=== PATIENT | female | born 1990 | race Caucasian/White ===

== ENCOUNTER → 2017-09-27 | Outpatient (CLI) | payer MEDICAID ==
[~2017-09-27] MED LIST: CEPH-368 PO; DOCU100T3 PO; IBUP-1222 PO; OXYC-302 PO; PNV1TABL4 PO
== END | disposition home or self-care (01) ==
LOC: RAD 13:35
PROVIDERS: ATTEND Nurse Practitioner Family
DX: S83.511A Sprain of anterior cruciate ligament of right knee, initial encounter (principal); M71.21 Synovial cyst of popliteal space [Baker], right knee; M25.461 Effusion, right knee; Z91.81 History of falling

== ENCOUNTER → 2018-01-24 | Outpatient (CLI) | payer MEDICAID ==
[~2018-01-24] MED LIST changes: +ESCI20TA PO; +METH750T2 PO
== END | disposition home or self-care (01) ==
LOC: STAR 13:38
PROVIDERS: ATTEND Orthopaedic Surgery
DX: Z02.9 Encounter for administrative examinations, unspecified (principal)

== ENCOUNTER 2018-01-31 12:28 | Day surgery (SDC) | payer MEDICAID ==
[2018-01-24 14:20] VITALS: BP 127/78
[~2018-01-31] VITALS: Ht 175.3 cm; Wt 90.0 kg
[~2018-01-31 12:28] MED LIST changes: +LIDOCAINE 1%-EPI 1:100K, 30ML ONE; +ROPIvacaine/PF 0.5%, 30 ML ONE
[2018-01-31] MEDS ORDERED: LACTATED RINGERS 1,000 ML IV SCH (12:51)
[2018-01-31 12:58] LABS: HCG UR SG 1.022 (1.003-1.030)
[2018-01-31] MEDS ORDERED: GABAPENTIN 300 MG CAPSULE PO ONE (13:00)
[2018-01-31] MEDS ORDERED: ACETAMINOPHEN 500 MG TABLET PO ONE (13:00)
[2018-01-31] MEDS ORDERED: OXYcodone IR 5MG TABLET PO ONE (13:00)
[2018-01-31] MEDS ORDERED: FENTANYL PF 250 MCG/5ML ONE (13:47)
[2018-01-31] MEDS ORDERED: MIDAZOLAM 1 MG/ML, 2ML ONE (13:47)
[2018-01-31] MEDS ORDERED: MEPERIDINE/PF 25MG/0.5ML IVPush PRN (14:00)
[2018-01-31] MEDS ORDERED: LABETALOL 5MG/ML, 20ML IV PRN (14:00)
[2018-01-31] MEDS ORDERED: hydrALAzine 20 MG/ML, 1ML IV PRN (14:00)
[2018-01-31] MEDS ORDERED: PROCHLORPERAZINE 5 MG/ML, 2ML IV PRN (14:00)
[2018-01-31] MEDS ORDERED: HALOPERIDOL 5 MG/ML IV PRN (14:00)
[2018-01-31] MEDS ORDERED: DIPHENHYDRAMINE 50 MG/ML, 1ML IVPush PRN (14:00)
[2018-01-31] MEDS ORDERED: OXYcodone 5 MG/5 ML ORAL.SOL UDC PO PRN (14:00)
[2018-01-31] MEDS ORDERED: ONDANSETRON 2MG/ML, 2ML ONE (14:24)
[2018-01-31] MEDS ORDERED: SUCCINYLCHOLINE 20 MG/ML, 10ML ONE (14:24)
[2018-01-31] MEDS ORDERED: DEXAMETHASONE 4 MG/ML, 1ML ONE (14:24)
[2018-01-31] MEDS ORDERED: CEFAZOLIN 1,000 MG ONE (14:24)
[2018-01-31] MEDS ORDERED: GLYCOPYRROLATE 0.2MG/1ML, 5ML ONE (14:24)
[2018-01-31] MEDS ORDERED: NEOSTIGMINE 1 MG/ML, 10ML ONE (14:24)
[2018-01-31] MEDS ORDERED: ROCURONIUM 10MG/ML,5ML ONE (14:24)
[2018-01-31] MEDS ORDERED: PROPOFOL 10 MG/ML, 20ML ONE (14:24)
[2018-01-31] MEDS ORDERED: OXYcodone 5 MG/5 ML ORAL.SOL UDC ONE (15:00)
[2018-01-31] MEDS ORDERED: FENTANYL PF 100 MCG/2ML ONE (15:00)
[2018-01-31] MEDS: FENTANYL PF 100 MCG/2ML IV PRN ×2 (15:04→15:12)
[2018-01-31] MEDS ORDERED: HYDROmorphone 2 MG/ML, 1ML ONE (15:21)
[2018-01-31] MEDS: HYDROmorphone 1 MG/ML, 1ML IV PRN ×3 (15:23→15:40)
[2018-01-31] MEDS ORDERED: KETOROLAC 30 MG/1 ML ONE (17:22)
[2018-01-31] MEDS ORDERED: KETOROLAC 30 MG/1 ML IVPush SCH (17:30)
== END 2018-01-31 18:26 | disposition home or self-care (01) ==
LOC: OUT 12:28
PROVIDERS: ATTEND Orthopaedic Surgery
DX: S83.211A Bucket-handle tear of medial meniscus, current injury, right knee, initial encounter (principal); S83.281A Other tear of lateral meniscus, current injury, right knee, initial encounter; S83.511A Sprain of anterior cruciate ligament of right knee, initial encounter; M65.861 Other synovitis and tenosynovitis, right lower leg; M94.261 Chondromalacia, right knee; X58.XXXA Exposure to other specified factors, initial encounter; Y93.89 Activity, other specified; Y92.89 Other specified places as the place of occurrence of the external cause; Y99.8 Other external cause status; Z88.1 Allergy status to other antibiotic agents; Z87.891 Personal history of nicotine dependence
CPT/HCPCS: 29880; 29888; 64447; 73560; 76000; 81025; C1713; J0330; J0690; J1100; J1170; J1885; J2250; J2405; J2704; J2710; J2795; J3010; J3490; J7120

== ENCOUNTER 2018-02-11 16:14 | Inpatient (IN) | payer MEDICAID ==
[~2018-02-11] VITALS: Ht 175.3 cm; Wt 98.4 kg
[~2018-02-11 16:14] MED LIST changes: -LIDOCAINE 1%-EPI 1:100K, 30ML ONE; -ROPIvacaine/PF 0.5%, 30 ML ONE
[2018-02-11] MEDS ORDERED: LACTATED RINGERS 1,000 ML IV SCH (16:50)
[2018-02-11 16:54] VITALS: BP 114/75
[2018-02-11 16:59] LABS: HCG UR SG 1.005 (1.003-1.030)
[2018-02-11] MEDS ORDERED: OXYcodone 5 MG/5 ML ORAL.SOL UDC PO PRN (17:00)
[2018-02-11] MEDS ORDERED: MEPERIDINE/PF 25MG/0.5ML IVPush PRN (17:00)
[2018-02-11] MEDS ORDERED: PROCHLORPERAZINE 5 MG/ML, 2ML IV PRN (17:00)
[2018-02-11] MEDS ORDERED: HALOPERIDOL 5 MG/ML IV PRN (17:00)
[2018-02-11] MEDS ORDERED: hydrALAzine 20 MG/ML, 1ML IV PRN (17:00)
[2018-02-11] MEDS ORDERED: LABETALOL 5MG/ML, 20ML IV PRN (17:00)
[2018-02-11] MEDS ORDERED: DIPHENHYDRAMINE 50 MG/ML, 1ML IVPush PRN (17:00)
[2018-02-11] MEDS ORDERED: FENTANYL PF 100 MCG/2ML ONE ×2 (17:15→18:10)
[2018-02-11] MEDS ORDERED: ONDANSETRON 2MG/ML, 2ML ONE (17:50)
[2018-02-11] MEDS ORDERED: CEFAZOLIN 1,000 MG ONE (17:50)
[2018-02-11] MEDS ORDERED: DEXAMETHASONE 4 MG/ML, 1ML ONE (17:50)
[2018-02-11] MEDS ORDERED: PROPOFOL 10 MG/ML, 20ML ONE (17:50)
[2018-02-11] MEDS ORDERED: HYDROmorphone 2 MG/ML, 1ML ONE (18:10)
[2018-02-11] MEDS: FENTANYL PF 100 MCG/2ML IV PRN ×2 (18:11→18:22)
[2018-02-11] MEDS: HYDROmorphone 1 MG/ML, 1ML IV PRN ×3 (18:17→18:54)
[2018-02-11 19:39] VITALS: BP 123/76
[2018-02-11] MEDS ORDERED: SENNA/DOCUSATE TABLET PO PRN (20:00)
[2018-02-11] MEDS ORDERED: ONDANSETRON 2MG/ML, 2ML IV PRN (20:00)
[2018-02-11] MEDS ORDERED: DIPHENHYDRAMINE 25 MG CAPSULE PO PRN (20:00)
[2018-02-11] MEDS ORDERED: CEFAZOLIN PMX 1GM/50ML 50 ML IVPB SCH (20:00)
[2018-02-11] MEDS ORDERED: MAGNESIUM HYDROXIDE 8%, 30ML UDC PO PRN (20:00)
[2018-02-11] MEDS ORDERED: BISACODYL 10 MG SUPP PR PRN (20:00)
[2018-02-11] MEDS ORDERED: ACETAMINOPHEN 325 MG TABLET PO PRN (20:00)
[2018-02-11] MEDS ORDERED: PROMETHAZINE 25 MG/ML, 1ML IM PRN (20:00)
[2018-02-11] MEDS ORDERED: VANCOMYCIN PER PHARMACY MC PRN (20:00)
[2018-02-11] MEDS ORDERED: ALUMINUM/MAG/SIMETHICONE 30 ML UDC PO PRN (20:00)
[2018-02-11] MEDS ORDERED: PHARMACOKINETIC MONITORING MC PRN (20:30)
[2018-02-11] MEDS: DOCUSATE 100 MG CAPSULE PO SCH (21:00)
[2018-02-11] MEDS: HYDROcodone/APAP 5/325 TABLET PO PRN (21:22)
[2018-02-11] MEDS: VANCOMYCIN 1,600 MG in SODIUM CHLORIDE 0.9% 250 ML IV SCH (21:23)
[2018-02-11] MEDS: KETOROLAC 30 MG/1 ML IV SCH (21:23)
[2018-02-12] MEDS: HYDROcodone/APAP 10/325 MG TABLET PO PRN ×5 (01:27→20:39)
[2018-02-12] MEDS: CEFAZOLIN PMX 2GM/50ML 50 ML IVPB SCH ×2 (01:27→10:34)
[2018-02-12] MEDS: D5%-LACTATED RINGERS 1,000 ML IV SCH ×2 (01:28→16:59)
[2018-02-12 03:30] VITALS: BP 106/62
[2018-02-12] MEDS: KETOROLAC 30 MG/1 ML IV SCH ×2 (04:21→11:41)
[2018-02-12 05:58] LABS: CREATININE 0.55 mg/dL (0.55-1.02)
[2018-02-12 07:04] VITALS: BP 109/67
[2018-02-12] MEDS: ASPIRIN 325 MG TABLET EC PO SCH ×2 (08:57→20:39)
[2018-02-12] MEDS: VANCOMYCIN 1,600 MG in SODIUM CHLORIDE 0.9% 250 ML IV SCH ×2 (08:58→22:00)
[2018-02-12] MEDS: DOCUSATE 100 MG CAPSULE PO SCH ×2 (08:58→20:41)
[2018-02-12 12:53] VITALS: BP 131/76
[2018-02-12] MEDS: ERTAPENEM 1 GM in SODIUM CHLORIDE 0.9% 50 ML IV SCH (16:35)
[2018-02-12 19:00] VITALS: BP 147/82
[2018-02-13] MEDS ORDERED: VANCOMYCIN 1,400 MG in SODIUM CHLORIDE 0.9% 250 ML IV SCH
[2018-02-13 01:39] VITALS: BP 104/61
[2018-02-13] MEDS: VANCOMYCIN 1,400 MG in SODIUM CHLORIDE 0.9% 250 ML IV SCH ×3 (06:13→22:04)
[2018-02-13] MEDS: HYDROcodone/APAP 10/325 MG TABLET PO PRN ×3 (06:19→20:32)
[2018-02-13 07:33] VITALS: BP 110/70
[2018-02-13] MEDS: DOCUSATE 100 MG CAPSULE PO SCH ×2 (08:03→21:11)
[2018-02-13] MEDS: ASPIRIN 325 MG TABLET EC PO SCH ×2 (08:03→21:11)
[2018-02-13 11:40] LABS: ALANINE AMINOTRANSFERASE 36 U/L (12-78); ANION GAP 6 mmol/L (5-15); CALCIUM 7.7 mg/dL (8.5-10.1); CHLORIDE 111 mmol/L (98-107); CREATININE 0.45 mg/dL (0.55-1.02)
[2018-02-13 11:49] LABS: ALKALINE PHOSPHATASE 54 U/L (45-117); BILIRUBIN,TOTAL 0.4 mg/dL (0.2-1.0); TOTAL PROTEIN 5.9 g/dL (6.4-8.2)
[2018-02-13 12:04] LABS: BASOPHILS # (AUTO) 0.03 x10^3/uL (0-0.1); BASOPHILS % (AUTO) 0 % (0-1); EOSINOPHILS # (AUTO) 0.22 x10^3/uL (0-0.4); EOSINOPHILS % (AUTO) 3 % (1-7); LYMPHOCYTES # (AUTO) 2.95 x10^3/uL (1-3.4); LYMPHOCYTES % (AUTO) 34 % (22-44); MD NO; MEAN CORPUSCULAR HEMOGLOBIN 30.8 pg (27.0-34.8); MEAN CORPUSCULAR HGB CONC 33.4 g/dL (32.4-35.8); MEAN PLATELET VOLUME 8.3 fL (7.4-10.4); MONOCYTES # (AUTO) 0.59 x10^3/uL (0.2-0.8); MONOCYTES % (AUTO) 7 % (2-9); NEUTROPHILS # (AUTO) 5.02 x10^3/uL (1.8-6.8); NEUTROPHILS % (AUTO) 57 % (42-75); PLATELET COUNT 246 x10^3/uL (130-400); RED BLOOD COUNT 3.83 x10^6/uL (3.82-5.3); RED CELL DISTRIBUTION WIDTH 14.6 % (9.6-15.2)
[2018-02-13] MEDS: D5%-LACTATED RINGERS 1,000 ML IV SCH (12:57)
[2018-02-13 13:31] VITALS: BP 123/76
[2018-02-13] MEDS ORDERED: BUPIVACAINE/PF-EPI 0.5% 1:200K ONE (16:45)
[2018-02-13] MEDS ORDERED: ROPIvacaine/PF 0.5%, 30 ML ONE (16:45)
[2018-02-13] MEDS ORDERED: FENTANYL PF 100 MCG/2ML ONE ×5 (16:45→18:12)
[2018-02-13] MEDS ORDERED: EPINEPHRINE 1 MG/ML, 1ML ONE (16:45)
[2018-02-13] MEDS ORDERED: ONDANSETRON 2MG/ML, 2ML ONE (16:50)
[2018-02-13] MEDS ORDERED: LIDOCAINE-MPF 2% ,5ML ONE (16:50)
[2018-02-13] MEDS ORDERED: MIDAZOLAM 1 MG/ML, 2ML ONE (17:02)
[2018-02-13] MEDS ORDERED: LORazepam 2 MG/ML, 1ML IVPush PRN (18:00)
[2018-02-13] MEDS ORDERED: hydrALAzine 20 MG/ML, 1ML IV PRN (18:00)
[2018-02-13] MEDS ORDERED: OXYcodone 5 MG/5 ML ORAL.SOL UDC PO PRN (18:00)
[2018-02-13] MEDS ORDERED: MIDAZOLAM 1 MG/ML, 2ML IV PRN (18:00)
[2018-02-13] MEDS ORDERED: ALBUTEROL SULFATE 2.5 MG/3 ML NPPB PRN (18:00)
[2018-02-13] MEDS ORDERED: LABETALOL 5MG/ML, 20ML IV PRN (18:00)
[2018-02-13] MEDS ORDERED: MORPHINE SULFATE 4 MG/ML, 1ML IVPush PRN (18:00)
[2018-02-13] MEDS ORDERED: PROCHLORPERAZINE 5 MG/ML, 2ML IV PRN (18:00)
[2018-02-13] MEDS ORDERED: HYDROmorphone 2 MG/ML, 1ML ONE ×2 (18:13→19:25)
[2018-02-13] MEDS: FENTANYL PF 100 MCG/2ML IV PRN ×2 (18:18→18:30)
[2018-02-13] MEDS ORDERED: MEPERIDINE/PF 50 MG/ML ONE (18:18)
[2018-02-13] MEDS: MEPERIDINE/PF 25MG/0.5ML IVPush PRN ×2 (18:21→19:09)
[2018-02-13] MEDS: HYDROmorphone 1 MG/ML, 1ML IV PRN ×5 (18:24→19:27)
[2018-02-13] MEDS ORDERED: LORazepam 2 MG/ML, 1ML ONE (18:48)
[2018-02-13] MEDS ORDERED: OXYcodone 5 MG/5 ML ORAL.SOL UDC ONE (19:02)
[2018-02-13 19:52] VITALS: BP 149/91
[2018-02-13] MEDS: ERTAPENEM 1 GM in SODIUM CHLORIDE 0.9% 50 ML IV SCH (19:58)
[2018-02-13] MEDS: DIAZEPAM 5 MG TABLET PO PRN (21:38)
[2018-02-13] MEDS: morphine SULFATE 10 MG/ML, 1ML IV PRN ×4 (22:42→23:52)
[2018-02-14] MEDS: morphine SULFATE 10 MG/ML, 1ML IV PRN ×6 (00:11→17:52)
[2018-02-14] MEDS: HYDROcodone/APAP 10/325 MG TABLET PO PRN (00:31)
[2018-02-14 00:46] VITALS: BP 128/75
[2018-02-14] MEDS: DIAZEPAM 5 MG TABLET PO PRN ×3 (03:05→19:49)
[2018-02-14] MEDS: HYDROcodone/APAP 5/325 TABLET PO PRN (04:54)
[2018-02-14 05:32] VITALS: BP 135/80
[2018-02-14] MEDS: VANCOMYCIN 1,400 MG in SODIUM CHLORIDE 0.9% 250 ML IV SCH (06:08)
[2018-02-14 08:36] VITALS: BP 122/76
[2018-02-14] MEDS: OXYcodone/APAP 10/325MG TABLET PO PRN ×5 (08:38→22:36)
[2018-02-14] MEDS: ASPIRIN 325 MG TABLET EC PO SCH ×2 (08:39→19:49)
[2018-02-14] MEDS: CYCLOBENZAPRINE 10 MG TABLET PO PRN ×2 (08:39→16:47)
[2018-02-14] MEDS: DOCUSATE 100 MG CAPSULE PO SCH ×2 (08:39→19:49)
[2018-02-14] MEDS: D5%-LACTATED RINGERS 1,000 ML IV SCH ×2 (10:00→22:39)
[2018-02-14 13:07] VITALS: BP 111/68
[2018-02-14] MEDS: ERTAPENEM 1 GM in SODIUM CHLORIDE 0.9% 50 ML IV SCH (18:47)
[2018-02-14 19:07] VITALS: BP 133/85
[2018-02-15 02:02] VITALS: BP 112/68
[2018-02-15] MEDS: CYCLOBENZAPRINE 10 MG TABLET PO PRN ×2 (02:16→12:40)
[2018-02-15] MEDS: OXYcodone/APAP 10/325MG TABLET PO PRN ×2 (02:16→07:18)
[2018-02-15] MEDS: DIAZEPAM 5 MG TABLET PO PRN (07:18)
[2018-02-15 07:19] VITALS: BP 124/75
[2018-02-15] MEDS ORDERED: OXYC5TAB3 PO (08:43)
[2018-02-15] MEDS ORDERED: ASPI-650 PO (08:44)
[2018-02-15] MEDS: ASPIRIN 325 MG TABLET EC PO SCH (08:54)
[2018-02-15] MEDS: DOCUSATE 100 MG CAPSULE PO SCH (08:54)
[2018-02-15] MEDS: HYDROcodone/APAP 5/325 TABLET PO PRN ×2 (11:25→15:35)
[2018-02-15] MEDS: D5%-LACTATED RINGERS 1,000 ML IV SCH (12:38)
[2018-02-15 12:54] VITALS: BP 120/77
[2018-02-15] MEDS ORDERED: ERTAPENEM 1 GM in SODIUM CHLORIDE 0.9% 50 ML IV SCH (16:00)
== END 2018-02-15 16:35 | disposition home or self-care (01) | DRG 464 ==
LOC: SDC 16:14 → 4NOR 19:36 → SDC 19:53 → 4NOR 19:54
PROVIDERS: ADMIT Orthopaedic Surgery; ATTEND Orthopaedic Surgery
PROC: 0JBN0ZZ Excision of Right Lower Leg Subcutaneous Tissue and Fascia, Open Approach (ICD-10-PCS; 2018-02-11)
PROC: 0MRN07Z Replacement of Right Knee Bursa and Ligament with Autologous Tissue Substitute, Open Approach (ICD-10-PCS; 2018-02-11)
PROC: 0SBC0ZZ Excision of Right Knee Joint, Open Approach (ICD-10-PCS; 2018-02-11)
PROC: 0SBC0ZZ Excision of Right Knee Joint, Open Approach (ICD-10-PCS; 2018-02-11)
PROC: 02HV33Z Insertion of Infusion Device into Superior Vena Cava, Percutaneous Approach (ICD-10-PCS; principal; 2018-02-14)
PROC: B5181ZA Fluoroscopy of Superior Vena Cava using Low Osmolar Contrast, Guidance (ICD-10-PCS; 2018-02-14)
PROC: B548ZZA Ultrasonography of Superior Vena Cava, Guidance (ICD-10-PCS; 2018-02-14)
DX: T84.53XA Infection and inflammatory reaction due to internal right knee prosthesis, initial encounter (principal); T81.31XA Disruption of external operation (surgical) wound, not elsewhere classified, initial encounter; M65.9 Synovitis and tenosynovitis, unspecified; Y83.8 Other surgical procedures as the cause of abnormal reaction of the patient, or of later complication, without mention of misadventure at the time of the procedure; Z82.49 Family history of ischemic heart disease and other diseases of the circulatory system; Z88.2 Allergy status to sulfonamides; Z83.3 Family history of diabetes mellitus; Z80.41 Family history of malignant neoplasm of ovary; Z80.3 Family history of malignant neoplasm of breast; Z90.49 Acquired absence of other specified parts of digestive tract; Z88.8 Allergy status to other drugs, medicaments and biological substances; Y92.89 Other specified places as the place of occurrence of the external cause
CPT/HCPCS: 36415; 73560; 76000; 77001; J7121; 36569; 76937; 80053; 80202; 81025; 82565; 84520; 85025; 85651; 86140; 87040; 87070; 87075; 87077; 87176; 87186; 87205; 89051; G0378; J0171; J0690; J1100; J1170; J1335; J1885; J2175; J2250; J2405; J2704; J2795; J3010; J3370; J3490; C1751; J2060; J2270; J7050; J7120; Q0163

== ENCOUNTER 2019-11-19 15:20 | Inpatient (IN) | payer MEDICAID ==
[~2019-11-19] VITALS: Ht 175.3 cm; Wt 82.3 kg
[2019-11-19 15:10] VITALS: BP 137/76
[~2019-11-19 15:20] MED LIST changes: +ASPI-650 PO; +OXYC5TAB3 PO
[2019-11-19] MEDS ORDERED: AMPICILLIN 2 GM in SODIUM CHLORIDE 0.9% 100 ML IVPB STA (16:25)
[2019-11-19] MEDS ORDERED: D5%-LACTATED RINGERS 1,000 ML IV SCH (16:25)
[2019-11-19] MEDS: LACTATED RINGERS 1,000 ML IV SCH ×2 (16:25→17:12)
[2019-11-19] MEDS ORDERED: OXYTOCIN 30U/ 0.9% NaCL 500ML 500 ML IV ONE (16:25)
[2019-11-19] MEDS ORDERED: FENTANYL PF 100 MCG/2ML IV PRN (16:30)
[2019-11-19] MEDS ORDERED: FENTANYL PF 100 MCG/2ML IVPush PRN (16:30)
[2019-11-19] MEDS ORDERED: TERBUTALINE 1 MG/ML, 1ML SQ PRN (16:30)
[2019-11-19] MEDS ORDERED: CALCIUM CARBONATE 500 MG TAB.CHEW PO PRN ×2 (16:30→21:00)
[2019-11-19] MEDS ORDERED: ONDANSETRON 2MG/ML, 2ML IVPush PRN (16:30)
[2019-11-19] MEDS ORDERED: AMPICILLIN 1 GM in SODIUM CHLORIDE 0.9% 100 ML IVPB SCH (16:30)
[2019-11-19] MEDS ORDERED: TERBUTALINE 1 MG/ML, 1ML IVPush PRN (16:30)
[2019-11-19 16:31] LABS: BASOPHILS # (AUTO) 0.04 x10^3/uL (0-0.1); BASOPHILS % (AUTO) 0 % (0-1); EOSINOPHILS # (AUTO) 0.07 x10^3/uL (0-0.4); EOSINOPHILS % (AUTO) 1 % (1-7); LYMPHOCYTES # (AUTO) 2.67 x10^3/uL (1-3.4); LYMPHOCYTES % (AUTO) 24 % (22-44); MD NO; MEAN CORPUSCULAR HEMOGLOBIN 25.1 pg (27.0-34.8); MEAN CORPUSCULAR HGB CONC 31.3 g/dL (32.4-35.8); MEAN PLATELET VOLUME 7.9 fL (7.4-10.4); MONOCYTES % (AUTO) 5 % (2-9); NEUTROPHILS # (AUTO) 7.67 x10^3/uL (1.8-6.8); NEUTROPHILS % (AUTO) 69 % (42-75); PLATELET COUNT 283 x10^3/uL (130-400); RED BLOOD COUNT 4.64 x10^6/uL (3.82-5.3); RED CELL DISTRIBUTION WIDTH 14.1 % (9.6-15.2)
[2019-11-19] MEDS ORDERED: FENTANYL PF 100 MCG/2ML ONE ×2 (16:41→17:15)
[2019-11-19 16:42] LABS: AMPHETAMINE SCREEN, URINE Positive (Negative); BARBITURATE SCREEN, URINE Negative (Negative); BENZODIAZEPINE SCREEN, URINE Negative (Negative); CANNABINOID SCREEN, URINE Negative (Negative); COCAINE SCREEN, URINE Negative (Negative); METHADONE SCREEN, URINE Negative (Negative); OPIATE SCREEN, URINE Positive (Negative)
[2019-11-19] MEDS ORDERED: LACTATED RINGERS 1,000 ML IV SCH (16:58)
[2019-11-19] MEDS ORDERED: FENTANYL/BUPIV./NS/PF 250 ML EPIDCONT SCH (16:58)
[2019-11-19] MEDS ORDERED: LACTATED RINGERS 1,000 ML IVBOLUS PRN (17:00)
[2019-11-19] MEDS ORDERED: EPHEDRINE 50 MG/ML, 1ML IVPush PRN (17:00)
[2019-11-19] MEDS ORDERED: NALOXONE 0.4 MG/ML, 1ML IVPush PRN (17:00)
[2019-11-19] MEDS ORDERED: PLEASE ENTER HEIGHT AND WEIGHT MC SCH (17:00)
[2019-11-19] MEDS ORDERED: LIDOCAINE 1%, 20ML ONE (17:01)
[2019-11-19] MEDS ORDERED: MISOPROSTOL 200 MCG TABLET ONE (17:01)
[2019-11-19] MEDS ORDERED: OXYTOCIN 30U/ 0.9% NaCL 500ML 500 ML ONE ×2 (17:01→21:23)
[2019-11-19] MEDS ORDERED: NEWBORN KIT ONE (17:02)
[2019-11-19] MEDS ORDERED: BUPIVACAINE 0.25% ONE ×2 (17:13→17:15)
[2019-11-19] MEDS ORDERED: FENTANYL/BUPIV./NS/PF 250 ML EPIDCONT ONE ×2 (17:14→17:15)
[2019-11-19] MEDS ORDERED: OXYTOCIN 30U/ 0.9% NaCL 500ML 500 ML IV PRN (19:00)
[2019-11-19] MEDS ORDERED: MAGNESIUM HYDROXIDE 8%, 30ML UDC PO PRN (21:00)
[2019-11-19] MEDS ORDERED: MISOPROSTOL 200 MCG TABLET PR PRN (21:00)
[2019-11-19] MEDS ORDERED: TRANEXAMIC ACID 100 MG/ML, 10ML IV ONE (21:00)
[2019-11-19] MEDS ORDERED: DOCUSATE 100 MG CAPSULE PO PRN (21:00)
[2019-11-19] MEDS ORDERED: IBUPROFEN 600 MG TABLET PO PRN (21:00)
[2019-11-19] MEDS ORDERED: METHYLERGONOVINE 0.2 MG/ML IM PRN (21:00)
[2019-11-19] MEDS ORDERED: SIMETHICONE 80 MG CHEW TAB PO PRN (21:00)
[2019-11-19] MEDS ORDERED: RHOGAM FROM BLOOD BANK 1 NOTE EA IM/IV ONE (21:00)
[2019-11-19] MEDS ORDERED: ONDANSETRON 2MG/ML, 2ML IV PRN (21:00)
[2019-11-19 21:03] LABS: MICROSCOPIC AUTO
[2019-11-19] MEDS: OXYTOCIN 30U/ 0.9% NaCL 500ML 500 ML IV SCH ×3 (21:27→23:35)
[2019-11-19 22:40] VITALS: BP 112/71
[2019-11-20] MEDS: OXYTOCIN 30U/ 0.9% NaCL 500ML 500 ML IV SCH ×6 (01:01→08:11)
[2019-11-20 04:00] VITALS: BP 103/67
[2019-11-20 05:49] LABS: MEAN CORPUSCULAR HEMOGLOBIN 25.6 pg (27.0-34.8); MEAN CORPUSCULAR HGB CONC 32.5 g/dL (32.4-35.8); MEAN PLATELET VOLUME 8.6 fL (7.4-10.4); PLATELET COUNT 207 x10^3/uL (130-400); RED CELL DISTRIBUTION WIDTH 13.8 % (9.6-15.2)
[2019-11-20 05:50] LABS: MD YES
[2019-11-20 05:54] LABS: BAND#(MANUAL) 0.12 x10^3/uL; BANDS%(MANUAL) 1 % (0-7); LYMPH#(MANUAL) 4.95 x10^3/uL (1-3.4); LYMPHS% (MANUAL) 43 % (22-44); MONOS#(MANUAL) 0.12 x10^3/uL (0.3-2.7); MONOS% (MANUAL) 1 % (2-9); SEG#(MANUAL) 6.33 x10^3/uL (1.8-6.8); SEGS% (MANUAL) 55 % (42-75)
[2019-11-20 05:56] LABS: POLYCHROMASIA 1+
[2019-11-20 05:59] LABS: <PLATELET ESTIMATE> ADEQUATE; <PLT MORPHOLOGY> NORMAL PLT MORPH; OVALOCYTES 1+
[2019-11-20] MEDS: LACTATED RINGERS 1,000 ML IV SCH (08:25)
[2019-11-20] MEDS ORDERED: ACETAMINOPHEN 325 MG TABLET ONE (08:53)
[2019-11-20] MEDS: PRENATAL VIT/IRON/FA 1 EACH TABLET PO SCH (08:56)
[2019-11-20] MEDS: ACETAMINOPHEN 325 MG TABLET PO PRN ×3 (08:56→21:15)
[2019-11-20] MEDS ORDERED: RHOGAM FROM BLOOD BANK 1 NOTE EA IM/IV ONE (09:00)
[2019-11-20 09:10] VITALS: BP 129/77
[2019-11-20] MEDS: NICOTINE 14MG/24 HR PATCH.TD24 TD SCH (09:11)
[2019-11-20 12:50] VITALS: BP 142/84
[2019-11-20 16:30] VITALS: BP 150/84
[2019-11-20 20:00] VITALS: BP 130/75
[2019-11-21] MEDS: ACETAMINOPHEN 325 MG TABLET PO PRN ×3 (01:20→10:06)
[2019-11-21 08:20] VITALS: BP 149/91
[2019-11-21] MEDS: PRENATAL VIT/IRON/FA 1 EACH TABLET PO SCH (10:06)
[2019-11-21] MEDS: NICOTINE 14MG/24 HR PATCH.TD24 TD SCH (10:07)
[2019-11-21] MEDS ORDERED: DIPH,PERTUSS(ACELL),TET VAC/PF NC IM-VACC ONE ×2 (13:26→16:30)
== END 2019-11-21 17:00 | disposition home or self-care (01) | DRG 807 ==
LOC: LDOP 15:20 → LDIP 16:10 → 2NW 22:15
PROVIDERS: ADMIT Obstetrics & Gynecology; ATTEND Obstetrics & Gynecology
PROC: 10E0XZZ Delivery of Products of Conception, External Approach (ICD-10-PCS; principal; 2019-11-19)
PROC: 3E0234Z Introduction of Serum, Toxoid and Vaccine into Muscle, Percutaneous Approach (ICD-10-PCS; 2019-11-19)
PROC: 10907ZC Drainage of Amniotic Fluid, Therapeutic from Products of Conception, Via Natural or Artificial Opening (ICD-10-PCS; 2019-11-19)
PROC: 3E0R3BZ Introduction of Anesthetic Agent into Spinal Canal, Percutaneous Approach (ICD-10-PCS; 2019-11-19)
PROC: 00HU33Z Insertion of Infusion Device into Spinal Canal, Percutaneous Approach (ICD-10-PCS; 2019-11-19)
DX: O34.211 Maternal care for low transverse scar from previous cesarean delivery (principal); Z37.0 Single live birth; Z3A.38 38 weeks gestation of pregnancy; Z88.8 Allergy status to other drugs, medicaments and biological substances; O75.89 Other specified complications of labor and delivery; Z67.21 Type B blood, Rh negative; Z20.828 Contact with and (suspected) exposure to other viral communicable diseases; Z79.891 Long term (current) use of opiate analgesic; Z82.49 Family history of ischemic heart disease and other diseases of the circulatory system; Z83.6 Family history of other diseases of the respiratory system; Z83.3 Family history of diabetes mellitus
CPT/HCPCS: 36415; 80307; 81001; 82803; 85025; 85461; 86592; 86762; 86850; 86900; 87086; 87340; 87635; 87806; 90715; G0378; J2790; J3010; J3490; G0475; J2590; J7120